=== PATIENT | female | born 1965 | race Caucasian/White ===

== ENCOUNTER 2018-04-26 07:01 | Outpatient (CLI) | payer MEDICAID | END 2018-04-26 07:02 | disposition EMS.NT | LOC: EMS 07:01 | PROVIDERS: ATTEND Surgery | DX: R06.02 Shortness of breath (principal) ==

== ENCOUNTER 2018-09-22 07:15 | Outpatient (CLI) | payer MEDICAID | END 2018-09-22 07:16 | disposition critical access hospital (66) | LOC: EMS 07:15 | PROVIDERS: ATTEND Surgery | DX: R06.00 Dyspnea, unspecified (principal) | CPT/HCPCS: A0425; A0427; A0999 ==

== ENCOUNTER 2018-09-22 07:46 | Emergency (ER) | payer MEDICAID ==
[2018-09-22] MEDS ORDERED: DEXAMETHASONE 10 MG/ML VIAL PO STA (07:59)
[2018-09-22] MEDS ORDERED: CHERRY SYRUP 10 ML UDC PO ONE (07:59)
[2018-09-22] MEDS ORDERED: IPRATROPIUM/ALBUTEROL 3 ML NEB INH STA (07:59)
--- NOTE | 2018-09-22 08:03 | ED Physician Documentation ---
PD HPI DYSPNEA - Stated complaint Stated Complaint: SOA/ASTHMA - Chief complaint Chief Complaint: Resp - History obtained from History obtained from: Patient, EMS - History of Present Illness Timing - onset: Last night Timing - onset during: Rest Timing - details: Gradual onset, Still present in ED Worsened by: Coughing Associated symptoms: Cough, Wheezing, Chest pain / discomfort Similar symptoms before: Diagnosis (asthma/COPD) - Treatment prior to arrival Treatment prior to arrival: Medics administered DuoNeb treatment. - Additional information Additional information: The patient is a 53-year-old female with history of asthma/COPD who presents via ambulance with dyspnea that started last night and continues this morning despite using her albuterol inhaler. She reports nonproductive cough and tightness in her chest. She denies fever, sore throat, or abdominal pain. Medics administered DuoNeb treatment while enroute. Patient has a history of cigarette smoking. Review of Systems Constitutional: denies: Fever Ears: denies: Tinnitus/ringing Nose: denies: Congestion Throat: denies: Sore throat Cardiac: reports: Chest pain / pressure Respiratory: reports: Dyspnea, Cough, Wheezing GI: denies: Abdominal Pain, Nausea, Vomiting : denies: Dysuria Skin: denies: Rash Musculoskeletal: reports: Extremity swelling. denies: Back pain Neurologic: denies: Focal weakness, Numbness, Headache PD PAST MEDICAL HISTORY - Past Medical History Past Medical History: Yes Respiratory: Asthma, COPD Endocrine/Autoimmune: None - Past Surgical History Past Surgical History: Yes /DIRECTOR LEARNING: section - Present Medications Home Medications: Ambulatory Orders Medication Instructions Recorded Confirmed Albuterol Sulf [Ventolin Hfa 09/22/18 Inhaler] Albuterol Sulf [Ventolin Hfa 1 - 2 puffs INH Q4HR PRN #1 inhaler 09/22/18 Inhaler] Azithromycin [Zithromax] 250 mg PO DAILY #6 tablet 09/22/18 predniSONE [Prednisone] 40 mg PO DAILY #10 tablet 09/22/18 - Allergies Allergies/Adverse Reactions: Allergies Allergy/AdvReac Type Severity Reaction Status Date / Time No Known Drug Allergies Allergy Verified 09/22/18 07:58 - Social History Does the pt smoke?: Yes Smoking Status: Current every day smoker Does the pt drink ETOH?: Yes Does the pt have substance abuse?: No PD ED PE NORMAL - Vitals Vital signs reviewed: Yes (Mildly tachycardic.) - General General: Alert and oriented X 3, Well developed/nourished, Other (Appears dyspneic.) - HEENT HEENT: Atraumatic, Pharynx benign - Neck Neck: Supple, no meningeal sign, No adenopathy, No JVD - Cardiac Cardiac: Other (Rapid rate, regular rhythm.) - Respiratory Respiratory: Other (Diffuse expiratory wheezing, with prolonged expiratory phase.) - Abdomen Abdomen: Soft, Non tender - Back Back: No CVA TTP - Derm Derm: No rash - Extremities Extremities: No calf tenderness / cord, Other (Trace pedal edema bilaterally.) - Neuro Neuro: Alert and oriented X 3, No motor deficit, Normal speech Results - Vitals Vitals: Vital Signs - 24 hr 09/22/18 09/22/18 09/22/18 07:55 08:08 09:11 Temperature 36.8 C Heart Rate 110 H 96 98 Respiratory 20 18 18 Rate Blood Pressure 137/78 H 130/98 H O2 Saturation 94 96 Oxygen O2 Source Room air - Rads (name of study) CXR Radiology: Prelim report reviewed, EMP read contemporaneously, See rad report (Mild bronchial thickening which can be seen with bronchitis or reactive airways disease. No dense consolidation. Lung volumes increased.) PD MEDICAL DECISION MAKING - ED course Complexity details: reviewed old records, reviewed results, re-evaluated patient, considered differential, d/w patient ED course: The patient's presentation is most consistent with acute exacerbation of COPD. Chest x-ray reveals mild bronchial thickening, without dense consolidation. Treatment in the emergency department included administration of DuoNeb nebulizer, dexamethasone 10 mg orally and zithromax 500 mg orally. Her symptoms improved with the above treatment, and on re-auscultation her wheezing has almost completely resolved. She is able to maintain a pulse oximetry above 94% on room air following the above treatment. She is being discharged with prescriptions for albuterol inhaler, prednisone and for zithromax. I discussed with her the expected course of illness, the importance of discontinuing cigarette smoking, outpatient follow-up, as well as potentially worrisome signs or symptoms that should prompt reevaluation in the emergency department. Departure - Departure Disposition: 01 Home, Self Care Clinical Impression: Acute exacerbation of chronic obstructive bronchitis Condition: Stable Instructions: ED COPD Flare Follow-Up: [facility] [Provider Group] Prescriptions: Albuterol Sulf [Ventolin Hfa Inhaler] 1 - 2 puffs INH Q4HR PRN #1 inhaler PRN Reason: Shortness Of Air/Wheezing Azithromycin [Zithromax] 250 mg PO DAILY #6 tablet predniSONE [Prednisone] 40 mg PO DAILY #10 tablet Comments: It is important that you stop smoking cigarettes. Use the albuterol inhaler as prescribed. Take prednisone daily as prescribed. Take Zithromax daily as prescribed. Follow-up with your primary physician within 1 to 2 weeks. Call to schedule an appointment. Return to the emergency department if you develop increasing difficulty breathing, or otherwise worsening symptoms Discharge Date/Time: 09/22/18 09:10
--- NOTE | 2018-09-22 08:51 | XRAY Report ---
Reason: dyspnea Procedure Date: 09/22/2018 Accession Number: [id number] / [id number] Procedure: XR - Chest 2 View X-Ray CPT Code: 14256 FULL RESULT: EXAM: CHEST RADIOGRAPHY EXAM DATE: 09/22/2018 08:33 AM. CLINICAL HISTORY: Dyspnea. COMPARISON: None. TECHNIQUE: 2 views. FINDINGS: Lungs/Pleura: Lung volumes increased. Mild bronchial thickening. No pleural effusions. No dense consolidation. No pneumothorax. Mediastinum: Right size is normal. Aorta is mildly tortuous. Other: Mild degenerative changes of the thoracic spine. IMPRESSION: 1. Mild bronchial thickening which can be seen with bronchitis or reactive airways disease. No dense consolidation. Lung volumes increased. RADIA
[2018-09-22] MEDS ORDERED: AZITHROMYCIN 250 MG TABLET PO STA (09:00)
[2018-09-22 09:15] VITALS: BP 130/98
== END 2018-09-22 09:10 | disposition home or self-care (01) ==
LOC: EDUNIT# → ED 07:46
DX: J44.1 Chronic obstructive pulmonary disease with (acute) exacerbation (principal); F17.210 Nicotine dependence, cigarettes, uncomplicated
CPT/HCPCS: 71046; 94640; 94664; 99283; 99284; A9270

== ENCOUNTER 2018-10-18 14:11 | Outpatient (CLI) | payer MEDICAID | END 2018-10-18 14:12 | disposition E | LOC: EMS 14:11 | PROVIDERS: ATTEND Surgery ==